=== PATIENT | male | born 1990 | race Caucasian/White ===

== ENCOUNTER 2017-01-01 00:42 | Emergency (ER) | payer BC ==
--- NOTE | ~2017-01-01 | ER ---
PATIENT'S NAME: SHANKAR HOLLAND [facility] AGE: 26 Y [address] ROOM: [place] [id number] LOCATION: [facility] ADMIT DATE: 01/01/2017 ER/Outpatient Report DISCHARGE DATE: 01/01/2017 FAMILY PHYSICIAN: Remington Gomez MD ATTENDING PHYSICIAN: Rivas Platt Admission date and time documented in the medical record. I saw the patient at 0100 hours. CHIEF COMPLAINT: Right thumb laceration. HISTORY OF PRESENT ILLNESS: This is a 26-year-old male who comes in with laceration on the distal phalanx of his right thumb. It occurred 30 minutes prior to admission to the emergency room. No other injuries. Cut was secondary to a sharp piece of glass. HOME MEDICATIONS: See attached medication list. ALLERGIES: NONE. SOCIAL HISTORY: Nonsmoker. Occasional intake of alcohol. SIGNIFICANT PAST MEDICAL HISTORY: Seizure history. OPERATIONS: Include brain surgery, rods placed in his back, appendectomy, ear surgery, port placement and removal. REVIEW OF SYSTEMS: All systems reviewed by me are negative with the exception of those discussed in the history of present illness. PHYSICAL EXAMINATION: VITAL SIGNS: Temperature 95.5 tympanic, pulse 67, respirations 14, blood pressure 113/62, and O2 saturation room air is 99%. MUSCULOSKELETAL: On examination, the patient has about 2.5 cm laceration on the thumb pad of his right thumb distal phalanx. Bleeding controlled. Neurovascular intact. Range of motion intact. PATIENT'S NAME: SHANKAR HOLLAND [facility] AGE: 26 Y [address] ROOM: [place] [address] LOCATION: [facility] ADMIT DATE: 01/01/2017 ER/Outpatient Report DISCHARGE DATE: 01/01/2017 FAMILY PHYSICIAN: Remington Gomez MD ATTENDING PHYSICIAN: Rivas Platt EMERGENCY ROOM COURSE: Thumb was cleansed with Betadine and normal saline. 1% Xylocaine was used for local infiltration of anesthesia. Wound was closed in simple fashion with 4-0 Ethilon suture. The patient tolerated the procedure well. Wound was cleansed and dressed. Tetanus was updated. IMPRESSION: 2.5 cm laceration, right thumb, with simple closure. PLAN: The patient dismissed home. Observation. Activity as tolerated. Keep the wound clean. Watch for infection. Dress the wound daily. Follow up with personal physician in 10 days for suture removal or sooner if needed. Discussion ensued with the patient concerning my findings and recommendations, he understands. MD LULY DEJESUS/carlota /[id number] d: 01/01/17 0202 t: 01/01/17 1809, OUTPATIENT REPORT
== END 2017-01-01 01:27 | disposition disaster alternative care site (69) ==
LOC: GACC 00:42
PROC: 0HQFXZZ Repair Right Hand Skin, External Approach (ICD-10-PCS; principal; 2017-01-01)
DX: S61.011A Laceration without foreign body of right thumb without damage to nail, initial encounter (principal); Z90.49 Acquired absence of other specified parts of digestive tract; Z98.890 Other specified postprocedural states; Z79.899 Other long term (current) drug therapy; Z96.89 Presence of other specified functional implants; Z86.69 Personal history of other diseases of the nervous system and sense organs; W25.XXXA Contact with sharp glass, initial encounter

== ENCOUNTER → 2017-01-01 | Emergency (ER) | payer BC | END | disposition disaster alternative care site (69) | LOC: GAMB 00:21 | DX: S69.91XA Unspecified injury of right wrist, hand and finger(s), initial encounter (principal); S61.011A Laceration without foreign body of right thumb without damage to nail, initial encounter; G89.11 Acute pain due to trauma; N32.9 Bladder disorder, unspecified; Q79.9 Congenital malformation of musculoskeletal system, unspecified; Z79.899 Other long term (current) drug therapy; W25.XXXA Contact with sharp glass, initial encounter ==